=== PATIENT | male | born 1970 | race Caucasian/White ===

== ENCOUNTER 2017-06-09 18:43 | Emergency (ER) | payer MEDICAID ==
[~2017-06-09] VITALS: Ht 180.3 cm; Wt 90.7 kg
[2017-06-09 18:45] VITALS: BP_SYST 142
--- NOTE | 2017-06-09 18:52 | NUR ---
Placed in room 02. Placed on cardiac tech, blood pressure machine and pulse oximeter. To gown for exam. Side rails up.
--- NOTE | 2017-06-09 19:00 | NUR ---
46year old male presented to ED with complaints of midlower chest discomfort since yesterday; DENIES SHORTNESS OF BREATH, LEFT SIDE NECK SWOLLEN; awaiting for MD to assess/eval
[2017-06-09 19:22] LABS: MONOCYTES # (AUTO) 0.5 K/uL (0.0-1.0); MONOCYTES % (AUTO) 7.6 % (1.7-9.3)
[2017-06-09 19:24] LABS: BASOPHILS % (AUTO) 0.6 % (0.0-2.0); EOSINOPHILS % (AUTO) 0.5 % (0.0-4.0); HEMATOCRIT 43.1 % (36-54); HEMOGLOBIN 14.4 g/dL (14.0-18.0); LYMPHOCYTES # (AUTO) 1.5 K/uL (1.0-5.5); MEAN CORPUSCULAR HEMOGLOBIN 29 pg (27-31); MEAN CORPUSCULAR HGB CONC 34 % (32-36); MEAN CORPUSCULAR VOLUME 87 fL (79.0-98.0); NEUTROPHILS # (AUTO) 4.9 K/uL (1.8-7.7); NEUTROPHILS % (AUTO) 69.3 % (40.0-70.0); PLATELET COUNT (AUTO) 280 K/uL (130-430); RED BLOOD CELL COUNT(AUTO) 4.95 MIL/uL (4.2-6.2); RED CELL DISTRIBUTION WIDTH 12.9 % (9.0-15.0); WHITE BLOOD COUNT (AUTO) 6.9 K/uL (4.8-10.8)
[2017-06-09 19:34] LABS: CREATININE 1.06 mg/dL (0.55-1.30); POTASSIUM 3.8 mmol/L (3.5-5.1)
[2017-06-09 19:38] LABS: ALBUMIN 4.2 g/dL (3.4-4.8); PROTHROMBIN TIME 9.9 SECS (9.5-12.5); TOTAL BILIRUBIN 0.5 mg/dL (0.0-1.0)
--- NOTE | 2017-06-09 19:46 | NUR ---
Dr. Quiroz at bedside for assess/eval
--- NOTE | 2017-06-09 21:50 | NUR ---
pt off unit amb to Radiology in stable condition; family accompanying
[2017-06-09] MEDS ORDERED: MAG HYDROX/AL HYDROX/SIMETH 30 ML, BELLADONNA ALKALOIDS/PHENOBARB 10 ML, LIDOCAINE VISC... PO ONE ×3 (22:30)
[2017-06-09 22:52] VITALS: BP_SYST 140
--- NOTE | 2017-06-09 22:52 | NUR ---
Patient given written and verbal discharge instructions and verbalizes understanding. ER MD discussed with patient the results and treatment provided. Patient in stable condition. ID arm band removed. Rx of Omeprazole and augmentin given. Patient educated on pain management and to follow up with PMD. Pain Scale 0/10 . Opportunity for questions provided and answered. Medication side effect fact sheet provided.
== END 2017-06-09 22:52 | disposition home or self-care (01) ==
LOC: SED 18:43
DX: K29.70 Gastritis, unspecified, without bleeding (principal); R22.1 Localized swelling, mass and lump, neck
CPT/HCPCS: 36415; 71045; 76536; 80053; 83690; 83880; 84484; 85025; 85610; 85730; 93005; 99285; J2001

== ENCOUNTER 2017-07-14 18:31 | Emergency (ER) | payer MEDICAID ==
[~2017-07-14] VITALS: Ht 180.3 cm; Wt 93.0 kg
[2017-07-14 18:41] VITALS: BP_SYST 138
[2017-07-14] MEDS ORDERED: MORPHINE 4 MG/ML INJ. SYRINGE IVP ONE (18:45)
[2017-07-14] MEDS ORDERED: ONDANSETRON HCL 4 MG/2 ML VIAL IVP ONE (18:45)
[2017-07-14] MEDS ORDERED: NACL 0.9% 1,000 ML IV ONE (18:45)
[2017-07-14 19:07] LABS: CALCIUM 9.1 mg/dL (8.4-11.0); POTASSIUM 3.7 mmol/L (3.5-5.1)
[2017-07-14 19:10] LABS: BASOPHILS % (AUTO) 0.4 % (0.0-2.0); EOSINOPHILS # (AUTO) 0.1 K/uL (0.0-0.4); EOSINOPHILS % (AUTO) 1.3 % (0.0-4.0); HEMATOCRIT 46.2 % (36-54); HEMOGLOBIN 15.5 g/dL (14.0-18.0); LYMPHOCYTES # (AUTO) 1.9 K/uL (1.0-5.5); LYMPHOCYTES % (AUTO) 27.6 % (20.5-51.5); MEAN CORPUSCULAR HEMOGLOBIN 29 pg (27-31); MEAN CORPUSCULAR HGB CONC 34 % (32-36); MEAN CORPUSCULAR VOLUME 86 fL (79.0-98.0); MONOCYTES # (AUTO) 0.5 K/uL (0.0-1.0); MONOCYTES % (AUTO) 7.2 % (1.7-9.3); NEUTROPHILS # (AUTO) 4.5 K/uL (1.8-7.7); NEUTROPHILS % (AUTO) 63.5 % (40.0-70.0); PLATELET COUNT (AUTO) 265 K/uL (130-430); RED CELL DISTRIBUTION WIDTH 12.6 % (9.0-15.0)
[2017-07-14 19:11] LABS: ALBUMIN 4.2 g/dL (3.4-4.8); TOTAL BILIRUBIN 0.5 mg/dL (0.0-1.0)
[2017-07-14 19:55] LABS: BILIRUBIN,URINE NEGATIVE (NEGATIVE); BLOOD, URINE NEGATIVE (NEGATIVE); CLARITY/URINE CLEAR (CLEAR); COLOR,URINE YELLOW (YELLOW); GLUCOSE,URINE NEGATIVE (NEGATIVE); KETONES,URINE NEGATIVE (NEGATIVE); LEUKOCYTE ESTERASE ,URINE NEGATIVE (NEGATIVE); NITRITE, URINE NEGATIVE (NEGATIVE); PROTEIN URINE NEGATIVE (NEGATIVE); UROBILINOGEN,URINE 0.2 (0.2-1.0)
[2017-07-14 20:11] LABS: BARBITURATE, URINE NEGATIVE (NEG <=200); BENZODIAZEPINE, URINE NEGATIVE (NEG <=150); CANNABINOID, URINE POSITIVE (NEG <=50); COCAINE, URINE NEGATIVE (NEG <=150); METHAMPHETAMINES SCREEN,URINE NEGATIVE (NEG <=500); OPIATE, URINE POSITIVE (NEG <=100); PHENCYCLIDINE SCREEN,URINE NEGATIVE (NEG <=25); UR TRICYCLIC ANTIDEPRESSANTS NEGATIVE (NEG <=300); URINE AMPHETAMINE NEGATIVE (NEG <=500); URINE METHADONE NEGATIVE (NEG <=200); URINE OXYCODONE SCREEN NEGATIVE (NEG <=100); URINE PROPOXYPHENE SCREEN NEGATIVE (NEG <=300)
[2017-07-14 20:55] VITALS: BP_SYST 126
== END 2017-07-14 20:55 | disposition home or self-care (01) ==
LOC: SED 18:31
DX: K52.9 Noninfective gastroenteritis and colitis, unspecified (principal); N20.0 Calculus of kidney; N28.1 Cyst of kidney, acquired; R03.0 Elevated blood-pressure reading, without diagnosis of hypertension; Z85.038 Personal history of other malignant neoplasm of large intestine
CPT/HCPCS: 36415; 74176; 76700; 80053; 80307; 81003; 83690; 85025; 96361; 96374; 96375; 99285; J2270; J2405; J7030

== ENCOUNTER 2017-07-15 11:33 | Emergency (ER) | payer MEDICAID ==
[~2017-07-15] VITALS: Ht 182.9 cm; Wt 90.7 kg
[2017-07-15 11:40] VITALS: BP_SYST 110
[2017-07-15] MEDS ORDERED: NACL 0.9% 1,000 ML IV ONE (11:45)
[2017-07-15] MEDS ORDERED: IOHEXOL 100 ML IV ONE (12:10)
[2017-07-15] MEDS ORDERED: DIATR MEGLU/DIATRIZ SOD 30 ML SOLUTION PO ONE (12:10)
[2017-07-15] MEDS ORDERED: KETOROLAC TROMETHAMINE 30 MG VIAL IVP ONE (14:00)
[2017-07-15 14:51] VITALS: BP_SYST 149
== END 2017-07-15 14:47 | disposition home or self-care (01) ==
LOC: SED 11:33
DX: K86.2 Cyst of pancreas (principal); D17.0 Benign lipomatous neoplasm of skin and subcutaneous tissue of head, face and neck; Z87.891 Personal history of nicotine dependence
CPT/HCPCS: 70491; 74177; 96361; 96374; 99284; J1885; Q9964; Q9967

== ENCOUNTER 2020-10-04 12:31 | Emergency (ER) | payer BC, MEDICAID ==
[~2020-10-04] VITALS: Ht 180.3 cm; Wt 104.3 kg
[2020-10-04 12:49] VITALS: BP_SYST 133
[2020-10-04] MEDS: ONDANSETRON HCL 4 MG/2 ML VIAL IVP ONE (14:58)
[2020-10-04] MEDS: PANTOPRAZOLE SODIUM 40 MG/VIAL (PROTONIX) IVP ONE (14:58)
[2020-10-04] MEDS: DIPHENHYDRAMINE INJ 50 MG/ML VIAL IVP ONE (15:00)
[2020-10-04] MEDS: MORPHINE 4 MG INJ. 4 MG/ML VIAL IVP ONE (15:00)
[2020-10-04] MEDS: NACL 0.9% 1,000 ML IV ONE (15:01)
[2020-10-04 15:02] LABS: BASOPHILS % (AUTO) 0.1 % (0.0-2.0); EOSINOPHILS % (AUTO) 0.2 % (0.0-4.0); HEMATOCRIT 40.8 % (36-54); HEMOGLOBIN 13.8 g/dL (14.0-18.0); LYMPHOCYTES # (AUTO) 0.2 K/uL (1.0-5.5); LYMPHOCYTES % (AUTO) 2.1 % (20.5-51.5); MEAN CORPUSCULAR HEMOGLOBIN 30 pg (27-31); MEAN CORPUSCULAR HGB CONC 34 % (32-36); MEAN CORPUSCULAR VOLUME 88 fL (79.0-98.0); MONOCYTES # (AUTO) 0.4 K/uL (0.0-1.0); MONOCYTES % (AUTO) 3.5 % (1.7-9.3); NEUTROPHILS # (AUTO) 9.8 K/uL (1.8-7.7); NEUTROPHILS % (AUTO) 94.1 % (40.0-70.0); PLATELET COUNT (AUTO) 270 K/uL (130-430); RED BLOOD CELL COUNT(AUTO) 4.66 MIL/uL (4.2-6.2); RED CELL DISTRIBUTION WIDTH 13.9 % (9.0-15.0); WHITE BLOOD COUNT (AUTO) 10.4 K/uL (4.8-10.8)
[2020-10-04 15:10] LABS: CALCIUM 8.3 mg/dL (8.4-11.0); CREATININE 1.03 mg/dL (0.55-1.30); POTASSIUM 4.3 mmol/L (3.5-5.1)
[2020-10-04 15:12] LABS: PROTHROMBIN TIME 9.9 SECS (9.5-12.5)
[2020-10-04 15:15] LABS: TOTAL BILIRUBIN 0.6 mg/dL (0.0-1.0)
[2020-10-04] MEDS ORDERED: ONDA-8 TL (15:47)
[2020-10-04] MEDS ORDERED: OMEP-455 PO (15:47)
[2020-10-04 15:51] LABS: BILIRUBIN,URINE NEGATIVE (NEGATIVE); BLOOD, URINE NEGATIVE (NEGATIVE); CLARITY/URINE CLEAR (CLEAR); COLOR,URINE YELLOW (YELLOW); GLUCOSE,URINE NEGATIVE (NEGATIVE); KETONES,URINE NEGATIVE (NEGATIVE); LEUKOCYTE ESTERASE ,URINE NEGATIVE (NEGATIVE); NITRITE, URINE NEGATIVE (NEGATIVE); PROTEIN URINE NEGATIVE (NEGATIVE); UROBILINOGEN,URINE 0.2 (0.2-1.0)
[2020-10-04 16:28] VITALS: BP_SYST 122
[2020-10-04] MEDS ORDERED: DICYCLOMINE HCL 10 MG/5 ML SOLUTION ONE (20:22)
== END 2020-10-04 16:28 | disposition home or self-care (01) ==
LOC: SED 12:31
DX: K92.1 Melena (principal); R10.13 Epigastric pain; R11.2 Nausea with vomiting, unspecified; Z79.899 Other long term (current) drug therapy
CPT/HCPCS: 36415; 71045; 80053; 81003; 82272; 83690; 85025; 85610; 85730; 86886; 86900; 86901; 93005; 96361; 96374; 96375; 99285; C9113; J1200; J2270; J2405; J7030

== ENCOUNTER 2021-11-10 10:50 | Emergency (ER) | payer BC ==
[~2021-11-10 10:50] MED LIST: OMEP-455 PO; ONDA-8 TL
[2021-11-10 11:50] VITALS: BP_SYST 161
--- NOTE | 2021-11-10 12:50 | NUR ---
PT ADMITTED FOR R UPPER ABDOMEN PAIN 10/ ONSET THIS MORNING AT 1000. PT DENIES N/V/C/D. PT HAS NO PAST MEDICAL HX AND TAKES NO HOME MEDS. ON R/A. SKIN INTACT. NO EDEMA. SKIN WARM. PT ENDORSED TO AQUILES MORAN. VS WNL.
--- NOTE | 2021-11-10 13:00 | NUR ---
first encounter to pt at this time. pt bib self from home with no sig pmhx here c/o sudden onset RLQ pain started 10am today morning. +nausea, +chills. denies vomitng, diarrhea, fevers. Pt is aox4, resp even and unlabored. vss nad. 20G to LAC, labs drawn and sent out. awaiting ermd to assess. pt attached to traffic monitor specialist. wctm Addendum: 11/10/21 at 1435 by [email or web address] R flank pain radiating to RLQ
[2021-11-10] MEDS ORDERED: KETOROLAC TROMETHAMINE 30 MG VIAL IVP ONE (13:30)
[2021-11-10 13:50] LABS: BASOPHILS % (AUTO) 0.3 % (0.0-2.0); EOSINOPHILS % (AUTO) 0.2 % (0.0-4.0); HEMATOCRIT 44.6 % (36-54); HEMOGLOBIN 15.2 g/dL (14.0-18.0); LYMPHOCYTES # (AUTO) 0.9 K/uL (1.0-5.5); LYMPHOCYTES % (AUTO) 9.6 % (20.5-51.5); MEAN CORPUSCULAR HEMOGLOBIN 29 pg (27-31); MEAN CORPUSCULAR HGB CONC 34 % (32-36); MEAN CORPUSCULAR VOLUME 86 fL (79.0-98.0); MONOCYTES # (AUTO) 0.5 K/uL (0.0-1.0); NEUTROPHILS # (AUTO) 8.2 K/uL (1.8-7.7); NEUTROPHILS % (AUTO) 84.9 % (40.0-70.0); PLATELET COUNT (AUTO) 263 K/uL (130-430); RED BLOOD CELL COUNT(AUTO) 5.21 MIL/uL (4.2-6.2); RED CELL DISTRIBUTION WIDTH 13.8 % (9.0-15.0); WHITE BLOOD COUNT (AUTO) 9.7 K/uL (4.8-10.8)
[2021-11-10 14:00] LABS: CALCIUM 8.9 mg/dL (8.4-11.0); CREATININE 1.36 mg/dL (0.55-1.30)
[2021-11-10 14:16] LABS: ALBUMIN 4.1 g/dL (3.4-4.8); TOTAL BILIRUBIN 0.7 mg/dL (0.0-1.0)
[2021-11-10] MEDS ORDERED: HYDR-3917 PO (14:55)
[2021-11-10] MEDS ORDERED: IBUP-1971 PO (14:55)
[2021-11-10 15:30] VITALS: BP_SYST 127
--- NOTE | 2021-11-10 15:32 | NUR ---
Patient given written and verbal discharge instructions and verbalizes understanding. ER MD discussed with patient the results and treatment provided. Patient in stable condition. ID arm band removed. IV catheter removed intact and dressing applied, no active bleeding. Rx of given. Patient educated on pain management and to follow up with PMD. Pain Scale 0/10. Opportunity for questions provided and answered. Medication side effect fact sheet provided.
== END 2021-11-10 15:29 | disposition home or self-care (01) ==
LOC: SED 10:50
DX: R10.9 Unspecified abdominal pain (principal); R11.0 Nausea; K21.9 Gastro-esophageal reflux disease without esophagitis; Z79.899 Other long term (current) drug therapy
CPT/HCPCS: 99284; 74176; 96374; 80053; 83690; 85025; 36415; 76376; J1885

== ENCOUNTER 2022-01-08 12:17 | Emergency (ER) | payer BC ==
[~2022-01-08] VITALS: Ht 177.8 cm; Wt 86.2 kg
[~2022-01-08 12:17] MED LIST changes: +HYDR-3917 PO; +IBUP-1971 PO
[2022-01-08 12:23] VITALS: BP_SYST 126
--- NOTE | 2022-01-08 12:30 | NUR ---
ER at bedside examining patient.
[2022-01-08 13:24] LABS: ANION GAP 9 (5-15); CALCIUM 9.1 mg/dL (8.4-11.0); CHLORIDE 107 mmol/L (98-107); CREATININE 1.07 mg/dL (0.55-1.30); GLUCOSE 91 mg/dL (70-99); POTASSIUM 4.2 mmol/L (3.5-5.1); UREA NITROGEN, BLOOD 17 mg/dL (8-21)
[2022-01-08 13:26] LABS: BASOPHILS % (AUTO) 0.4 % (0.0-2.0); EOSINOPHILS % (AUTO) 0.7 % (0.0-4.0); HEMATOCRIT 41.1 % (36-54); LYMPHOCYTES # (AUTO) 1.3 K/uL (1.0-5.5); LYMPHOCYTES % (AUTO) 24.6 % (20.5-51.5); MEAN CORPUSCULAR VOLUME 86 fL (79.0-98.0); MONOCYTES # (AUTO) 0.4 K/uL (0.0-1.0); MONOCYTES % (AUTO) 7.9 % (1.7-9.3); NEUTROPHILS # (AUTO) 3.5 K/uL (1.8-7.7); NEUTROPHILS % (AUTO) 66.4 % (40.0-70.0); PLATELET COUNT (AUTO) 255 K/uL (130-430); RED BLOOD CELL COUNT(AUTO) 4.78 MIL/uL (4.2-6.2); RED CELL DISTRIBUTION WIDTH 14.3 % (9.0-15.0); WHITE BLOOD COUNT (AUTO) 5.2 K/uL (4.8-10.8)
[2022-01-08 13:35] LABS: GFR AFRICAN AMERICAN 94 mL/min (>90)
[2022-01-08 13:48] LABS: ALANINE AMINOTRANSFERASE 34 U/L (12-78); ASPARTATE AMINOTRANSFERASE 23 U/L (10-37); TOTAL BILIRUBIN 0.7 mg/dL (0.0-1.0)
[2022-01-08] MEDS ORDERED: OMEP20CA15 PO (16:00)
== END 2022-01-08 16:05 | disposition left against medical advice (07) ==
LOC: SED 12:17
DX: K20.90 Esophagitis, unspecified without bleeding (principal); K21.9 Gastro-esophageal reflux disease without esophagitis; R07.9 Chest pain, unspecified; Z79.899 Other long term (current) drug therapy
CPT/HCPCS: 36415; 71045; 80053; 84484; 85025; 93005; 99285

== ENCOUNTER 2023-03-13 12:25 | Emergency (ER) | payer BC ==
[~2023-03-13] VITALS: Ht 182.9 cm; Wt 97.5 kg
[~2023-03-13 12:25] MED LIST changes: +OMEP20CA15 PO
[2023-03-13 12:30] VITALS: BP_SYST 135; PULSE 77; RESP 18; TEMP 97.8; O2SAT 99
[2023-03-13] MEDS ORDERED: cloNIDine HCL 0.1 MG TABLET PO ONE (12:45)
[2023-03-13 13:38] LABS: BASOPHILS % (AUTO) 0.2 % (0.0-2.0); EOSINOPHILS % (AUTO) 0.5 % (0.0-4.0); HEMATOCRIT 45.8 % (36-54); HEMOGLOBIN 15.1 g/dL (14.0-18.0); LYMPHOCYTES % (AUTO) 19.5 % (20.5-51.5); MEAN CORPUSCULAR HEMOGLOBIN 29 pg (27-31); MEAN CORPUSCULAR HGB CONC 33 % (32-36); MEAN CORPUSCULAR VOLUME 87 fL (79.0-98.0); MONOCYTES # (AUTO) 0.4 K/uL (0.0-1.0); MONOCYTES % (AUTO) 8.3 % (1.7-9.3); NEUTROPHILS # (AUTO) 3.8 K/uL (1.8-7.7); NEUTROPHILS % (AUTO) 71.5 % (40.0-70.0); PLATELET COUNT (AUTO) 297 K/uL (130-430); RED CELL DISTRIBUTION WIDTH 13.8 % (9.0-15.0); WHITE BLOOD COUNT (AUTO) 5.3 K/uL (4.8-10.8)
[2023-03-13 13:45] LABS: PROTHROMBIN TIME 10.2 SECS (9.5-12.5)
[2023-03-13 13:47] LABS: ALANINE AMINOTRANSFERASE 22 U/L (12-78); ALBUMIN 3.9 g/dL (3.4-4.8); ANION GAP 6 (5-15); ASPARTATE AMINOTRANSFERASE 11 U/L (10-37); CALCIUM 8.9 mg/dL (8.4-11.0); CARBON DIOXIDE 27 mmol/L (23-29); CHLORIDE 105 mmol/L (98-107); CREATININE 1.02 mg/dL (0.55-1.30); GFR AFRICAN AMERICAN 99 mL/min (>90); GLUCOSE 115 mg/dL (74-106); SODIUM SERUM 138 mmol/L (136-145); TOTAL BILIRUBIN 0.5 mg/dL (0.0-1.0); TOTAL PROTEIN, SERUM 7.1 g/dL (6.4-8.3); UREA NITROGEN, BLOOD 16 mg/dL (8-21)
[2023-03-13 13:54] LABS: GFR NON AFRICAN-AMERICAN 82 mL/min (>90)
[2023-03-13 13:56] LABS: CREATINE KINASE, TOTAL 64 U/L (39-308); FREE T4 (FREE THYROXINE) 1.1 ng/dl (0.8-1.5); THYROID STIMULATING HORMONE 1.02 uIu/mL (0.36-3.74)
[2023-03-13 13:59] LABS: ACETONE, SERUM NEGATIVE (NEGATIVE)
[2023-03-13] MEDS ORDERED: CLON0.2T PO (14:15)
[2023-03-13 14:43] VITALS: BP_SYST 113; PULSE 74; RESP 18; TEMP 98.1; O2SAT 94
== END 2023-03-13 14:42 | disposition home or self-care (01) ==
LOC: SED 12:25
DX: R42 Dizziness and giddiness (principal); K21.9 Gastro-esophageal reflux disease without esophagitis; Z79.899 Other long term (current) drug therapy
CPT/HCPCS: 36415; 70450-TC; 71045; 76376; 80053; 82009; 82550; 83605; 84439; 84443; 84484; 85025; 85610-TC; 85730-TC; 93005; 99285